=== PATIENT | female | born 1965 | race Caucasian/White ===

== ENCOUNTER 2016-12-13 10:04 | Emergency (ER) | payer BC ==
[~2016-12-13] VITALS: Ht 165.1 cm; Wt 84.0 kg
[2016-12-13 10:12] VITALS: Ht 165.1 cm; Wt 84.0 kg
--- NOTE | 2016-12-13 11:32 | ERD ---
ER Documentation Chief Complaint Date/Time DATE: 12/13/16 TIME: 11:30 Chief Complaint fever, cough, sorethroat, body aches x 2 days HPI 51-year-old female presented emergency department for productive cough, sore throat, right ear pain, fever, generalized body ache for 3-4 days. Denies headache, loss of consciousness, dizziness, blurry vision, changes in vision, photophobia, facial pain, difficulty swallowing, neck pain, shoulder pain, chest pain, hemoptysis, abdominal pain, back pain, loss of appetite, nausea, vomiting, hematochezia, diarrhea, constipation, urinary symptoms, , the possibility of being , bladder and bowel incontinences, extremity weakness, extremity tenderness, numbness or tingling sensation, difficulty walking, recent travel, recent exposure to illness, recent antibiotic use in the last 3 months. Allergy: NKDA. PMH: Hyperlipidemia, arthritis, thyroid disease. Family medical history: Denies. and 1 miscarriage. LMP: November 26, 2016. Medications: Thyroxine, gabapentin. Surgery: Thyroidectomy. Primary Social History: Not working at this time. Denies smoking, use of alcohol, use of illegal drugs. ROS All systems reviewed and are negative except as per history of present illness. Medications Home Meds Active Scripts Albuterol Sulfate* (Proair HFA*) 8.5 Gm Hfa.aer.ad, 2 PUFF INH Q4, #1 INHALER Prov:ELYSSAESTHELA ARCHIBALD 12/13/16 Acetaminophen* (Tylophen*) 500 Mg Capsule, 1 CAP PO Q6H Y for PAIN AND OR ELEVATED TEMP, #20 CAP Prov:ESTHELA MICHAEL 12/13/16 Prednisone* (Prednisone*) 20 Mg Tab, 60 MG PO DAILY for 5 Days, TAB Prov:ESTHELA MICHAEL 12/13/16 Amoxicillin/Potassium Clav (Amox-Clav 875-125 mg Tablet) 875-125 mg Tab, 1 TAB PO BID for 7 Days, #14 TAB Prov:ESTHELA MICHAEL 12/13/16 Allergies Allergies: Coded Allergies: No Known Allergy (Unverified , 12/13/16) PMhx/Soc History of Surgery: Yes (THYROIDECTOMY ) Anesthesia Reaction: No Hx Neurological Disorder: No Hx Respiratory Disorders: No Hx Cardiac Disorders: No Hx Psychiatric Problems: No Hx Miscellaneous Medical Probl: No Hx Alcohol Use: No Hx Substance Use: No Hx Tobacco Use: No Smoking Status: Never smoker Physical Exam Vitals Vital Signs Date Time Temp Pulse Resp B/P Pulse Ox O2 Delivery O2 Flow Rate FiO2 12/13/16 10:12 98.7 91 18 157/86 96 Physical Exam CONSTITUTIONAL: Well-appearing; well-nourished; in no apparent distress. HEAD: Normocephalic; atraumatic. EYES: Conjunctiva clear, sclera non-icteric, EOM intact. PERRL Ears: Left ear: Hearing intact. EACs clear, TM is non-bulging, non-inflamed, translucent & mobile, ossicles normal appearance, No obstructions, no erythema, no discharges Right ear: Hearing intact. EACs clear, TM is erythematous.No obstructions, no erythema, no discharges Nose: No obstructions. No polyps. No external lesions. Mucosa non-inflamed. No external lesions, septum and turbinates normal. No rhinorrhea. No discharges. Frontal sinus is tender to palpation. Maxillary sinus is tender to palpation. MOUTH: Moist mucous membranes, no lesion, no obstructions, no vesicles, no thrush, patent airway Throat: Uvula in midline. Right tonsil is +1 with no erythema, no exudate. Left tonsil is +1 with no erythema, no exudate. Tolerating secretions well. Good gag reflex. Patent airway. Neck: Supple, without lesions, bruits, or adenopathy. No mass. Thyroid non- enlarged and non-tender to palpation. CHEST: Symmetrical chest. Respirations even and not labored. No retractions noted. CARDIOVASCULAR: Normal S1, S2. RRR. No murmurs, gallops. RESPIRATORY: Normal chest excursion with respiration; breath sounds clear and equal bilaterally; no wheezes, rhonchi, or rales. Breathing even and unlabored. Speaking in clear, full, and complete sentences w/ ease. ABDOMEN: Normal bowel sounds normal. Soft, round, non-distended, non-guarding, no tenderness, no rebound, no organomegaly, no masses, no pulsating abdominal mass. No hernia. No peritoneal signs. : No CVA tenderness. BACK: Symmetrical shoulder. Spine is midline without deformity, tenderness. No evidence of trauma or deformity. PELVIS: Stable pelvis. No evidence of trauma or deformity. MUSCULOSKELETAL: Normal gait and station. No misalignment, asymmetry, crepitation, defects, tenderness, masses, effusions, decreased range of motion, instability, atrophy or abnormal strength or tone in the head, neck, spine, ribs , pelvis or extremities. No calf tenderness. NEUROVASCULAR: Distal pulses are present. Pedal pulse are present, equal, and normal. Capillary refills are < 2 seconds. NEUROLOGIC: Alert and oriented x4. Speaks full and clear sentences. Cranial Nerves II-XII normal. Sensation to pain, touch, and proprioception normal. Grossly unremarkable. No neurologic deficits. Romberg test is negative. PSYCHOLOGICAL: The patients mood and manner are appropriate. No hallucinations , delusions. Not SI. Not HI. Has the capacity to decide for self SKIN: Normal for age and ethnicity; warm; dry; good turgor; no apparent lesions or exudates. No rashes, hives, discoloration. Intact. Procedures/MDM Examination: Please see physical examination. Disease process, medical treatment was explained to the patient and family member. They verbalized understanding and agreed with the medical treatment, and follow-up care. Re-evaluation: Denies headache, dizziness, blurry vision, neck pain, throat pain , difficulty swallowing, shoulder pain, chest pain, abdominal pain, nausea. No episode of emesis in the emergency department. Respirations even and unlabored. Lung sounds clear to auscultation. There is no abdominal tenderness. Alert and oriented 4. Speaks full and clear sentences. Has good and full range of motion of neck and spine. No nuchal rigidity. No neck stiffness. No neurovascular deficits. No neurological deficits. Romberg test negative. Consultation: None. Differential diagnosis: Pneumonia versus bronchitis versus otitis media versus otitis externa versus sinusitis versus strep pharyngitis Medical decision makin-year-old female presented emergency department for productive cough, sore throat, right ear pain, fever, generalized body ache for 3-4 days. Patient's complaint, patient's history about her complaint, my physical findings, my reevaluation are consistent with my final diagnosis of bronchitis, right otitis media, sinusitis. Medications prescribed are the following: Augmentin. Pro-air. Prednisone. Tylenol. Motrin Patient and family member are made aware of the side effects and adverse reactions of the medications prescribed. Instructed on when to seek emergent and medical attention in case allergic/anaphylactic reactions or severe side effects and or adverse reactions to medications. Patient and family member verbalized understanding. Patient instructed Instructed to follow-up with his PCP in 24-48 hours. Instructed to Call 911 for chest pain, shortness of breath. Advised to come back here in ED as soon as possible for severity of symptoms which includes but not limited to: any new symptoms; shortness of breath/difficulty of breathing; cardiovascular changes; severe gastrointestinal symptoms; signs and symptoms of bleeding and or infection; signs of compartment syndrome/neurovascular changes; neurological changes/deficits. Patient and family member verbalized understanding. Upon discharge, patient is alert and oriented x 4, speaks full and clear sentences, denies pain, has no neurological deficits, has no neurovascular deficits, difficulty of breathing. Breathing even and unlabored. Lung sounds are clear to auscultation. Not in distress. Appears comfortable. Ambulatory with steady gait. Appears satisfied with care provided here in ED. Departure Diagnosis: Primary Impression: Acute bronchitis Additional Impressions: Otitis media Sinusitis Condition: Good Additional Instructions: Instructed to follow-up with his PCP in 24-48 hours. Instructed to Call 911 for chest pain, shortness of breath. Advised to come back here in ED as soon as possible for severity of symptoms which includes but not limited to: any new symptoms; shortness of breath/difficulty of breathing; cardiovascular changes; severe gastrointestinal symptoms; signs and symptoms of bleeding and or infection; signs of compartment syndrome/neurovascular changes; neurological changes/deficits. Patient and family member verbalized understanding. ESTHELA MICHAEL Dec 13, 2016 11:31 ESTHELA MICHAEL Dec 13, 2016 11:31
[2016-12-13] MEDS ORDERED: AMOX1TAB10 PO (11:33)
[2016-12-13] MEDS ORDERED: PRED20TA PO (11:33)
[2016-12-13] MEDS ORDERED: ACET500C5 PO (11:33)
[2016-12-13] MEDS ORDERED: ALBU8.5H3 INH (11:34)
== END 2016-12-13 11:40 | disposition home or self-care (01) ==
LOC: FTE 10:04
DX: J20.9 Acute bronchitis, unspecified (principal); H66.91 Otitis media, unspecified, right ear; J32.9 Chronic sinusitis, unspecified
CPT/HCPCS: 99284